=== PATIENT | female | born 1995 | race African-American/Black ===

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

== ENCOUNTER 2018-09-06 06:21 | Emergency (ER) | payer MEDICAID ==
[~2018-09-06] VITALS: Ht 162.6 cm; Wt 61.0 kg
[2018-09-06 06:37] VITALS: BP 114/80
== END 2018-09-06 10:23 | disposition left against medical advice (07) ==
LOC: ER 06:21
DX: N89.8 Other specified noninflammatory disorders of vagina (principal); R20.2 Paresthesia of skin
CPT/HCPCS: 99281

== ENCOUNTER 2019-10-05 10:34 | Emergency (ER) | payer MEDICAID ==
[~2019-10-05] VITALS: Ht 170.2 cm; Wt 74.0 kg
[2019-10-05 11:26] VITALS: BP 140/76
[2019-10-05 11:38] LABS: BASOPHILS % 0.5 % (0.0-2.0); EOSINOPHILS % 0.5 % (0.0-5.0); HEMATOCRIT. 37.6 % (36.0-48.0); HEMOGLOBIN. 12.3 g/dL (12.0-16.0); LYMPHOCYTES % 27.7 % (20.0-50.0); MEAN CORPUSCULAR HEMOGLOBIN 26.7 pg (28.0-32.0); MEAN CORPUSCULAR VOLUME 81.6 fL (81.0-99.0); MEAN PLATELET VOLUME 8.3 fl (7.4-10.4); MONOCYTES % 6.7 % (2.0-8.0); NEUTROPHILS % 64.6 % (40.0-76.0); PLATELET 302 x1000/uL (130-400); RED CELL DISTRIBUTION WIDTH 14.1 % (11.6-14.6)
[2019-10-05 11:46] LABS: CHLORIDE 112 mEq/L (98-107)
== END 2019-10-05 12:38 | disposition left against medical advice (07) ==
LOC: ER 10:34
DX: R07.89 Other chest pain (principal); F17.210 Nicotine dependence, cigarettes, uncomplicated; Z71.6 Tobacco abuse counseling; R03.0 Elevated blood-pressure reading, without diagnosis of hypertension
CPT/HCPCS: 36415; 71045; 80053; 83880; 84484; 85025; 99284; 99406